=== PATIENT | female | born 1995 | race African-American/Black ===

== ENCOUNTER 2020-03-14 12:19 | Emergency (ER) | payer MEDICAID ==
[~2020-03-14] VITALS: Ht 162.6 cm; Wt 61.0 kg
[2020-03-14 13:13] VITALS: BP 118/76
[2020-03-14] MEDS ORDERED: HYDROCODONE/ACETAMINOPHEN 5/325MG TABLET PO STA (13:13)
[2020-03-14] MEDS ORDERED: LIDOCAINE 1%/EPI 1:100,000 10 ML VIAL IJ ONE (13:15)
[2020-03-14] MEDS ORDERED: BACITRACIN ZINC OINT UDPKT TOP ONE (13:15)
[2020-03-14] MEDS ORDERED: LIDOCAINE HCL/EPINEPHRINE 1%-EPI 1:100,000 20 ML VIAL INFIL ONE (13:45)
== END 2020-03-14 16:12 | disposition home or self-care (01) ==
LOC: ER 12:46
DX: S41.011A Laceration without foreign body of right shoulder, initial encounter (principal); Y04.0XXA Assault by unarmed brawl or fight, initial encounter; Y93.9 Activity, unspecified; Y92.89 Other specified places as the place of occurrence of the external cause; Y99.8 Other external cause status
CPT/HCPCS: 12002; 71045; 73030; 99284; J3490

== ENCOUNTER 2020-03-25 09:14 | Emergency (ER) | payer MEDICAID ==
[~2020-03-25] VITALS: Ht 157.5 cm; Wt 55.0 kg
[2020-03-25 10:12] VITALS: BP 151/93
== END 2020-03-25 10:13 | disposition home or self-care (01) ==
LOC: ER 09:17
DX: Z48.02 Encounter for removal of sutures (principal)
CPT/HCPCS: 99281

== ENCOUNTER 2020-04-03 04:28 | Emergency (ER) | payer MEDICAID ==
[~2020-04-03] VITALS: Ht 160 cm; Wt 60.0 kg
[2020-04-03] MEDS ORDERED: ONDANSETRON HCL 4MG/2ML INJ IV STA (05:03)
[2020-04-03] MEDS ORDERED: SODIUM CHLORIDE 0.9% 1,000 ML IV ONE (05:15)
[2020-04-03 05:44] LABS: BASOPHILS % 0.9 % (0.0-2.0); EOSINOPHILS % 1.8 % (0.0-5.0); HEMOGLOBIN. 12.8 g/dL (12.0-16.0); LYMPHOCYTES % 38.7 % (20.0-50.0); MEAN CORPUSCULAR HEMOGLOBIN 31.3 pg (28.0-32.0); MEAN CORPUSCULAR VOLUME 97.4 fL (81.0-99.0); MEAN PLATELET VOLUME 7.5 fl (7.4-10.4); MONOCYTES % 9.5 % (2.0-8.0); NEUTROPHILS % 49.1 % (40.0-76.0); PLATELET 245 x1000/uL (130-400); RED CELL DISTRIBUTION WIDTH 15.9 % (11.6-14.6)
[2020-04-03 05:51] LABS: CHLORIDE 107 mEq/L (98-107)
[2020-04-03 07:43] VITALS: BP 118/74
== END 2020-04-03 07:52 | disposition home or self-care (01) ==
LOC: ER 04:28
DX: F41.9 Anxiety disorder, unspecified (principal); R10.0 Acute abdomen
CPT/HCPCS: 36415; 71045; 80053; 81025; 83690; 84484; 85025; 96361; 96374; 99284; J2405; J7030; Z7610

== ENCOUNTER 2022-03-06 15:31 | Emergency (ER) | payer MEDICAID ==
[~2022-03-06] VITALS: Ht 167.6 cm; Wt 59.0 kg
[2022-03-06 15:33] VITALS: BP 117/74
== END 2022-03-06 18:58 | disposition left against medical advice (07) ==
LOC: ER 15:31
DX: R51.9 Headache, unspecified (principal); Z53.21 Procedure and treatment not carried out due to patient leaving prior to being seen by health care provider

== ENCOUNTER 2022-07-12 23:10 | Emergency (ER) | payer MEDICAID ==
[~2022-07-12] VITALS: Ht 162.6 cm; Wt 60.0 kg
[2022-07-12 23:15] VITALS: BP 126/81
[2022-07-12] MEDS: OXYMETAZOLINE HCL NASAL SPRAY 15ML BOTHNSTRLS SCH (23:30)
[2022-07-13] MEDS: OXYMETAZOLINE HCL NASAL SPRAY 15ML BOTHNSTRLS SCH (00:57)
== END 2022-07-13 00:58 | disposition home or self-care (01) ==
LOC: ER 23:10
DX: R04.0 Epistaxis (principal); F41.9 Anxiety disorder, unspecified
CPT/HCPCS: 99283

== ENCOUNTER 2023-04-08 05:56 | Emergency (ER) | payer MEDICAID ==
[~2023-04-08] VITALS: Ht 165.1 cm; Wt 64.0 kg
[2023-04-08 06:03] VITALS: O2SAT 98
[2023-04-08 06:42] LABS: BASOPHILS % 0.6 % (0.0-2.0); HEMATOCRIT. 38.4 % (36.0-48.0); HEMOGLOBIN. 12.3 g/dL (12.0-16.0); LYMPHOCYTES % 25.3 % (20.0-50.0); MEAN CORPUSCULAR HEMOGLOBIN 27.9 pg (28.0-32.0); MEAN PLATELET VOLUME 7.3 fl (7.4-10.4); MONOCYTES % 3.6 % (2.0-8.0); NEUTROPHILS % 69.5 % (40.0-76.0); PLATELET 226 x1000/uL (130-400); RED BLOOD CELL COUNT 4.41 mill/uL (4.2-5.4); RED CELL DISTRIBUTION WIDTH 19.5 % (11.6-14.6)
[2023-04-08] MEDS: IBUPROFEN 600MG TABLET PO ONE (06:52)
[2023-04-08 06:57] LABS: ALANINE AMINOTRANSFERASE 133 IU/L (10-49); ALBUMIN 4.8 g/dL (3.2-4.8); ASPARTATE AMINOTRANSFERASE 211 IU/L (<34); BILIRUBIN TOTAL 0.6 mg/dL (0.1-1.0); CARBON DIOXIDE 20 mEq/L (21-32); CHLORIDE 103 mEq/L (98-107); CREATININE 0.6 mg/dL (0.6-1.0); GLUCOSE 58 mg/dL (70-105); POTASSIUM 3.8 mEq/L (3.5-5.1); PROTEIN TOTAL 7.7 g/dL (6.0-8.3); SODIUM 138 mEq/L (136-145); UREA NITROGEN BLOOD 11 mg/dL (9-23)
[2023-04-08 07:12] LABS: HCG SCREEN NEGATIVE
[2023-04-08] MEDS ORDERED: IBUP-2029 MT (08:41)
[2023-04-08] MEDS: ACETAMINOPHEN 325MG TABLET PO ONE (08:45)
[2023-04-08 08:56] VITALS: BP 135/75; PULSE 78; RESP 18; TEMP 97.5
[2023-04-08 09:01] LABS: CLARITY URINE CLEAR (CLEAR); COLOR URINE YELLOW (YELLOW); GLUCOSE URINE NEGATIVE (NEGATIVE); KETONES URINE 1+ (NEGATIVE); LEUKOCYTE ESTERASE URINE NEGATIVE (NEGATIVE); NITRITE URINE NEGATIVE (NEGATIVE); OCCULT BLOOD URINE NEGATIVE (NEGATIVE); PH URINE 5.5 (4.5-8.0); PROTEIN URINE TRACE (NEGATIVE); UROBILINOGEN URINE 0.2 E.U./dL (0.2-1.0)
[2023-04-08 09:27] LABS: SQUAMOUS EPITHELIAL CELL URINE 3+ /lpf (RARE/1+)
[2023-04-08 09:29] LABS: BACTERIA URINE 1+; WBC URINE 0-2 /hpf (0-2)
[2023-04-08 09:30] LABS: RBC URINE NONE SEEN /hpf (0-2)
== END 2023-04-08 08:57 | disposition home or self-care (01) ==
LOC: ER 06:22
DX: B34.9 Viral infection, unspecified (principal); R09.81 Nasal congestion; R05.9 Cough, unspecified; F12.10 Cannabis abuse, uncomplicated; F41.9 Anxiety disorder, unspecified; Z20.822 Contact with and (suspected) exposure to COVID-19
CPT/HCPCS: 36415; 71045; 80053; 81003; 81025; 84703; 85025; 87426; 87804; 99284

== ENCOUNTER 2024-04-10 22:09 | Emergency (ER) | payer MEDICAID ==
[~2024-04-10] VITALS: Ht 165.1 cm; Wt 69.0 kg
[~2024-04-10 22:09] MED LIST: IBUP-2029 MT
[2024-04-10 22:21] VITALS: O2SAT 100
[2024-04-11 00:24] LABS: CHLORIDE 106 mEq/L (98-107); POTASSIUM 3.4 mEq/L (3.5-5.1); SODIUM 143 mEq/L (136-145)
[2024-04-11 00:25] LABS: CALCIUM 9.4 mg/dL (8.7-10.4); CARBON DIOXIDE 25 mEq/L (21-32)
[2024-04-11 00:26] LABS: EOSINOPHILS % 4.2 % (0.0-5.0); HEMATOCRIT. 41.2 % (36.0-48.0); HEMOGLOBIN. 13.8 g/dL (12.0-16.0); LYMPHOCYTES % 49.3 % (20.0-50.0); MEAN CORPUSCULAR HEMOGLOBIN 30.9 pg (28.0-32.0); MEAN CORPUSCULAR HGB CONC 33.4 g/dL (31.0-37.0); MEAN CORPUSCULAR VOLUME 92.4 fL (81.0-99.0); MEAN PLATELET VOLUME 7.7 fl (7.4-10.4); MONOCYTES % 12.5 % (2.0-8.0); PLATELET 110 x1000/uL (130-400); RED BLOOD CELL COUNT 4.46 mill/uL (4.2-5.4); RED CELL DISTRIBUTION WIDTH 17.2 % (11.6-14.6); WHITE BLOOD COUNT 3.4 x1000/uL (4.5-11.0)
[2024-04-11 00:30] LABS: CREATININE 0.8 mg/dL (0.6-1.0); GLUCOSE 171 mg/dL (70-105); UREA NITROGEN BLOOD 7 mg/dL (9-23)
[2024-04-11 00:32] LABS: ALANINE AMINOTRANSFERASE 130 IU/L (10-49); ALBUMIN 4.7 g/dL (3.2-4.8); ASPARTATE AMINOTRANSFERASE 244 IU/L (<34); BILIRUBIN DIRECT 0.1 mg/dL (<=3.0); INR 0.9; PROTHROMBIN TIME 10.5 sec (9.6-11.0)
[2024-04-11 00:33] LABS: BILIRUBIN TOTAL 0.4 mg/dL (0.1-1.0); PROTEIN TOTAL 7.8 g/dL (6.0-8.3)
[2024-04-11 01:25] LABS: CLARITY URINE CLOUDY (CLEAR); COLOR URINE YELLOW (YELLOW); GLUCOSE URINE NEGATIVE (NEGATIVE); KETONES URINE NEGATIVE (NEGATIVE); LEUKOCYTE ESTERASE URINE NEGATIVE (NEGATIVE); NITRITE URINE NEGATIVE (NEGATIVE); OCCULT BLOOD URINE NEGATIVE (NEGATIVE); PH URINE 6.5 (4.5-8.0); PROTEIN URINE TRACE (NEGATIVE); SPECIFIC GRAVITY URINE 1.008 (1.005-1.030)
[2024-04-11] MEDS ORDERED: ACET-2708 MT (01:26)
[2024-04-11] MEDS ORDERED: ONDA-239 PO (01:26)
[2024-04-11 01:59] VITALS: BP 114/79; PULSE 79; RESP 20; TEMP 36.8; O2SAT 100
[2024-04-11 05:55] LABS: RBC URINE 0-2 /hpf (0-2); SQUAMOUS EPITHELIAL CELL URINE NONE SEEN /lpf (RARE/1+); WBC URINE 0-2 /hpf (0-2)
[2024-04-11 05:56] LABS: BACTERIA URINE NONE SEEN
== END 2024-04-11 02:00 | disposition home or self-care (01) ==
LOC: ER 22:09
DX: B34.9 Viral infection, unspecified (principal); F10.10 Alcohol abuse, uncomplicated; F12.90 Cannabis use, unspecified, uncomplicated; Z79.899 Other long term (current) drug therapy; Y90.9 Presence of alcohol in blood, level not specified
CPT/HCPCS: 36415; 80048; 80076; 81003; 85025; 86850; 86900; 93005; 99284